=== PATIENT | female | born 1960 | race Caucasian/White ===

== ENCOUNTER → 2017-03-28 | Outpatient (CLI) | payer SELFPAY ==
--- NOTE | 2017-03-28 18:43 | CT ---
Indication: Pain. Exam: CT abdomen and pelvis without contrast. Technique: Axial spiral images were obtained from lung bases through the pubic symphysis without cont rast. Findings: The lung bases are clear. The liver is mildly enlarged with fatty replacement throughout. N o focal lesion is seen. The gallbladder, pancreas , and bile ducts are normal. There is a 1.8 cm left adrenal mass which measures -2.4 Hounsfield units. The right adrenal is normal. There is partial mal rotation of the kidneys with no hydronephrosis or renal stones. There is no adenopathy or ascites see n. There is a large 12 cm fascal defect along the lower abdominal wall with multiple loops of bowel e xtending through the defect which appear normal caliber with no bowel obstruction seen. There is some mild hazy density in the mesentery of the small bowel with small lymph nodes in the area measuring u p to 8 mm. The uterus has been removed with no adnexal mass. The bladder is unremarkable. The appendi x is normal. The bones are intact. Impression: Mild hepatomegaly and fatty replacement throughout with no acute intra-abdominal abnormality seen. 1.8 cm left adrenal nodule which probably represents an adenoma or cyst. Questionable mild mesenteric adenitis . Large 12 cm abdominal wall hernia with bowel loops in the hernia which appear normal caliber, recomme nd clinical follow-up. Status post hysterectomy with no pelvic mass. Reported By:
== END | disposition home or self-care (01) ==
LOC: RAD 14:15
PROVIDERS: ATTEND Physician Assistant
DX: K43.9 Ventral hernia without obstruction or gangrene (principal); E27.8 Other specified disorders of adrenal gland
CPT/HCPCS: 74176